=== PATIENT | female | born 1990 | race Two or more races ===

== ENCOUNTER 2021-12-07 18:30 | Emergency (ER) | payer SELFPAY ==
[~2021-12-07] VITALS: Ht 177.8 cm; Wt 90.7 kg
[2021-12-07 18:54] VITALS: BP 135/60
--- NOTE | 2021-12-07 20:39 | NUR ---
PT WC ASSISTED TO BED 5 WITH NURSE
[2021-12-07] MEDS ORDERED: HYDROmorphone PFS 2 MG/ML SYR IM ONE (21:00)
[2021-12-07] MEDS ORDERED: LIDOCAINE/EPI 2% 1:100000 20 ML VIAL INJ ONE (21:10)
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
[2021-12-07] MEDS ORDERED: IBUP-2213 PO (23:10)
[2021-12-07] MEDS ORDERED: HYDR-5080 PO (23:12)
[2021-12-07 23:36] VITALS: BP 119/72
--- NOTE | 2021-12-07 23:36 | NUR ---
Patient discharged with v/s stable. Written and verbal after care instructions given and explained. Patient alert, oriented and verbalized understanding of instructions. Ambulatory with steady gait with crutches. All questions addressed prior to discharge. ID band removed. Patient advised to follow up with PMD. Rx of ibuprofen and norco given. Opportunity to ask questions provided and answered.
== END 2021-12-07 23:36 | disposition home or self-care (01) ==
LOC: MED 18:30
DX: S82.842A Displaced bimalleolar fracture of left lower leg, initial encounter for closed fracture (principal); Z79.899 Other long term (current) drug therapy; W18.40XA Slipping, tripping and stumbling without falling, unspecified, initial encounter; Y93.89 Activity, other specified; Y92.89 Other specified places as the place of occurrence of the external cause; Y99.8 Other external cause status
CPT/HCPCS: 27810; 73610; 96372; 99285; J1170; J2001; Q0092; 29515

== ENCOUNTER 2021-12-08 16:40 | Emergency (ER) | payer SELFPAY ==
[~2021-12-08] VITALS: Ht 177.8 cm; Wt 90.7 kg
[~2021-12-08 16:40] MED LIST: HYDR-5080 PO; IBUP-2213 PO
[2021-12-08 17:15] VITALS: BP 119/70
[2021-12-08] MEDS ORDERED: MORPHINE SULFATE 5 MG/ML VIAL IM ONE (18:50)
[2021-12-08] MEDS ORDERED: MORPHINE SULFATE 10 MG/ML VIAL ONE (20:12)
--- NOTE | 2021-12-08 20:15 | NUR ---
MEDICATED PER [facility] ORDER.
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
[2021-12-08 20:41] VITALS: BP 124/75
--- NOTE | 2021-12-08 20:41 | NUR ---
Patient discharged with v/s stable. Written and verbal after care instructions given and explained. Patient verbalized understanding. Wheel Chair Assisted with to car. All questions addressed prior to discharge. Advised to follow up with PMD. Susy/CECI, GIOVANI.
== END 2021-12-08 20:41 | disposition home or self-care (01) ==
LOC: MED 16:40
DX: M25.572 Pain in left ankle and joints of left foot (principal); Z46.89 Encounter for fitting and adjustment of other specified devices; Z79.899 Other long term (current) drug therapy
CPT/HCPCS: 29515; 96372; 99283; J2270